=== PATIENT | female | born 1940 | race Caucasian/White ===

== ENCOUNTER 2021-11-19 12:27 | Outpatient (CLI) | payer MEDICARE | END 2021-11-19 12:28 | disposition home or self-care (01) | LOC: CSHWCC 12:27 | PROVIDERS: ATTEND Nurse Practitioner Family | DX: S51.801D Unspecified open wound of right forearm, subsequent encounter (principal) ==

== ENCOUNTER 2021-11-26 10:18 | Outpatient (CLI) | payer MEDICARE | END 2021-11-26 10:19 | disposition home or self-care (01) | LOC: CSHWCC 10:18 | PROVIDERS: ATTEND Nurse Practitioner Family | DX: S51.801D Unspecified open wound of right forearm, subsequent encounter (principal) | CPT/HCPCS: 97139; G0463; 99212 ==

== ENCOUNTER 2021-12-04 10:40 | Outpatient (CLI) | payer MEDICARE | END 2021-12-04 10:41 | disposition home or self-care (01) | LOC: CSHWCC 10:40 | PROVIDERS: ATTEND Nurse Practitioner Family | DX: S51.801D Unspecified open wound of right forearm, subsequent encounter (principal) | CPT/HCPCS: 99213; G0463 ==

== ENCOUNTER 2021-12-12 11:28 | Outpatient (CLI) | payer MEDICARE | END 2021-12-12 11:29 | disposition home or self-care (01) | LOC: CSHWCC 11:28 | PROVIDERS: ATTEND Nurse Practitioner Family | DX: S51.801D Unspecified open wound of right forearm, subsequent encounter (principal) | CPT/HCPCS: 97139; G0463; 99213 ==

== ENCOUNTER 2022-01-10 15:10 | Outpatient (CLI) | payer MEDICARE | END 2022-01-10 15:11 | disposition home or self-care (01) | LOC: CSHWCC 15:10 | PROVIDERS: ATTEND Nurse Practitioner Family | DX: S51.801D Unspecified open wound of right forearm, subsequent encounter (principal) | CPT/HCPCS: 97139; G0463; 99212 ==

== ENCOUNTER 2022-01-22 11:17 | Outpatient (CLI) | payer MEDICARE | END 2022-01-22 11:18 | disposition home or self-care (01) | LOC: CSHWCC 11:17 | PROVIDERS: ATTEND Nurse Practitioner Family | DX: S51.801D Unspecified open wound of right forearm, subsequent encounter (principal) ==

== ENCOUNTER 2022-01-28 13:15 | Outpatient (CLI) | payer MEDICARE | END 2022-01-28 13:16 | disposition home or self-care (01) | LOC: CSHWCC 13:15 | PROVIDERS: ATTEND Nurse Practitioner Family | DX: S51.801D Unspecified open wound of right forearm, subsequent encounter (principal) | CPT/HCPCS: 17250 ==

== ENCOUNTER 2022-02-04 14:45 | Outpatient (CLI) | payer MEDICARE | END 2022-02-04 14:46 | disposition home or self-care (01) | LOC: CSHWCC 14:45 | PROVIDERS: ATTEND Nurse Practitioner Family | DX: S51.801D Unspecified open wound of right forearm, subsequent encounter (principal) | CPT/HCPCS: 99212; G0463 ==